=== PATIENT | female | born 1975 | race Caucasian/White ===

== ENCOUNTER 2017-04-24 00:44 | Emergency (ER) | payer BC ==
[~2017-04-24] VITALS: Ht 172.7 cm; Wt 89.1 kg
[2017-04-24 05:45] VITALS: BP 119/88
[2017-04-24] MEDS ORDERED: INDERAL40 MG PO (11:22)
[2017-04-24] MEDS ORDERED: FIORICET 50-301 EAC1 PO (11:22)
== END 2017-04-24 05:45 | disposition home or self-care (01) ==
LOC: EME 00:44
DX: R51 Headache (principal); F17.200 Nicotine dependence, unspecified, uncomplicated
CPT/HCPCS: 70450; 99281; 99285; J1200; J2270; J2765; J7030